=== PATIENT | female | born 1950 | race Caucasian/White ===

== ENCOUNTER → 2017-03-19 | Outpatient (CLI) | payer OTHER, MEDICARE ==
[~2017-03-19] MED LIST: ESTRACE1 MG PO; FLEXERIL PO; LISINOPRIL-HCT1 EAC1 PO
== END ==
LOC: RAD 02:00
DX: Z12.31 Encounter for screening mammogram for malignant neoplasm of breast (principal)

== ENCOUNTER → 2018-04-20 | Outpatient (CLI) | payer OTHER, MEDICARE | LOC: RAD 03:08 | DX: Z12.31 Encounter for screening mammogram for malignant neoplasm of breast (principal) ==

== ENCOUNTER → 2018-09-28 | Outpatient (CLI) | payer OTHER | LOC: CAT 08:58 | DX: Z13.6 Encounter for screening for cardiovascular disorders (principal); E78.00 Pure hypercholesterolemia, unspecified ==

== ENCOUNTER 2019-01-01 09:28 | Emergency (ER) | payer OTHER, MEDICARE ==
[~2019-01-01] VITALS: Ht 157.5 cm; Wt 69.0 kg
[2019-01-01 11:11] VITALS: BP 113/79
[2019-01-01] MEDS ORDERED: LIDOCAINE PAIN1 EACH TOP (11:11)
[2019-01-01] MEDS ORDERED: HYDROCODONE-AP1 EAC6 PO (11:11)
[2019-01-01] MEDS ORDERED: NAPROSYN500 MG PO (11:12)
== END 2019-01-01 11:30 | disposition home or self-care (01) ==
LOC: ER 09:28
DX: S70.12XA Contusion of left thigh, initial encounter (principal); S20.212A Contusion of left front wall of thorax, initial encounter; S09.8XXA Other specified injuries of head, initial encounter; I10 Essential (primary) hypertension; W10.8XXA Fall (on) (from) other stairs and steps, initial encounter; Y93.89 Activity, other specified; Y92.89 Other specified places as the place of occurrence of the external cause; Y99.8 Other external cause status

== ENCOUNTER → 2019-04-28 | Outpatient (CLI) | payer OTHER, MEDICARE ==
[~2019-04-28] MED LIST changes: +HYDROCODONE-AP1 EAC6 PO; +LIDOCAINE PAIN1 EACH TOP; +NAPROSYN500 MG PO
== END ==
LOC: RAD 01:37
DX: Z12.31 Encounter for screening mammogram for malignant neoplasm of breast (principal)

== ENCOUNTER → 2020-07-15 | Outpatient (CLI) | payer OTHER, MEDICARE | LOC: BC 09:23 | PROVIDERS: ATTEND Family Medicine | DX: Z12.31 Encounter for screening mammogram for malignant neoplasm of breast (principal) ==

== ENCOUNTER → 2020-07-26 | Outpatient (CLI) | payer OTHER, MEDICARE ==
[~2020-07-26] MED LIST changes: +FIBER500 MG PO; +GAS RELIEF80 MG PO; +GLUCOSAMINE H1500 MG PO; +ZINC50 M2 PO
== END ==
LOC: LAB 10:58
PROVIDERS: ATTEND Orthopaedic Surgery Sports Medicine
DX: Z01.812 Encounter for preprocedural laboratory examination (principal); Z20.828 Contact with and (suspected) exposure to other viral communicable diseases

== ENCOUNTER 2020-07-31 08:22 | Inpatient (IN) | payer OTHER, MEDICARE ==
[2020-07-23 13:00] LABS: HEMATOCRIT 42.6 % (37.0-47.0); HEMOGLOBIN 14.4 gm/dL (12.0-15.0); MCH 29.7 pg (26.0-34.0); MCHC 33.9 g/dL (28.0-37.0); MCV 87.9 fL (80.0-100.0); RBC 4.85 mil/uL (4.20-5.00); RDW 14.6 % (10.5-14.5); WBC 6.1 thou/uL (4.0-11.0)
--- NOTE | 2020-07-23 13:04 | EKG ---
[facility] [place] [address] ELECTROCARDIOGRAM REPORT Name: ZAKI LUCIO Room #: PRE IN M.R.#: [id number] Admission: Attend Phys: Kendall Milan Discharge: Date of : 52 Report #: [id number] THIS REPORT FOR: cc: Florian Castro MD, Neal A. MD Santiago, Patrick MD [facility] ~ THIS REPORT FOR: //name// [facility] Test Date: 2020-07-23 Test Time: 12:55:06 Pat Name: ZAKI LUCIO Department: Room: Gender: F Sheet Metal Supervisor: OSCAR NG : 1950 Requested By: Kendall Ndiaye Order Number: [id number] MD: Malik Carson Measurements Intervals Boomer Rate: 74 P: 21 IA: 136 QRS: 17 QRSD: 99 T: 7 QT: 400 QTc: 444 Interpretive Statements Significant Pacemaker spikes or artifacts Unable to interpret Electronically Signed On 07-23-2020 13:04:12 CDT by Malik Carson [email or web address] <ELECTRONICALLY SIGNED> By: Malik Carson MD, FACC 07/23/20 1304 1255 Malik Carson MD, FAC /EPI
[2020-07-23 13:06] LABS: CALCIUM 9.4 mg/dL (8.5-10.1); CREATININE 0.7 mg/dL (0.6-1.0); POTASSIUM 4.1 mmol/L (3.5-5.1)
[2020-07-23 13:09] LABS: PROTIME 10.1 Seconds (9.3-11.4)
[2020-07-23 13:13] LABS: URINE BILIRUBIN NEGATIVE (Negative); URINE BLOOD NEGATIVE (Negative); URINE CLARITY CLEAR; URINE COLOR YELLOW; URINE GLUCOSE-RANDOM* NEGATIVE (Negative); URINE KETONES NEGATIVE (Negative); URINE LEUKOCYTES-REFLEX NEGATIVE (Negative); URINE NITRITE-REFLEX NEGATIVE (Negative); URINE PROTEIN (DIPSTICK) NEGATIVE (Negative); URINE UROBILINOGEN 0.2 E.U./dl (0.2-1.0)
[2020-07-31] VITALS (9 sets, daily range): BP systolic 97–130; BP diastolic 44–80
[~2020-07-31] VITALS: Ht 157.5 cm; Wt 68.9 kg
--- NOTE | ~2020-07-31 | O ---
[facility] [place] [address] OPERATIVE REPORT Name: ZAKI LUCIO Room #: 150-3 ADM IN M.R.#: [id number] Admission: 07/31/20 Attend Phys: Kendall Milan Discharge: Date of : 52 Report #: [id number] THIS REPORT FOR: cc: Florian Castro MD, Neal A. MD VanDenBerghe, Gregory R. MD ~ CC: Kendall Castro DATE OF SERVICE: 07/31/2020 PREOPERATIVE DIAGNOSES: Left shoulder pain, osteoarthritis, biceps tendinopathy. POSTOPERATIVE DIAGNOSES: Left shoulder pain, osteoarthritis, biceps tendinopathy, intra-articular loose body, osteoporosis of the proximal humerus. PROCEDURE PERFORMED: Left total shoulder arthroplasty with open biceps tenodesis and loose body removal. SURGEON: Kendall Ndiaye MD [employer] COORDINATOR: Mabel Mackey PA-C. ANESTHESIA: General with preoperative ultrasound-guided interscalene block. FLUIDS: 700 mL crystalloid. ESTIMATED BLOOD LOSS: Approximately 50 mL. IMPLANTS UTILIZED: [employer] Unite size 10 standard porous-coated stem with 135 degree size 10 proximal body, 44 x 18 eccentric humeral head and a size 40 anchor peg glenoid. DESCRIPTION OF PROCEDURE: After proper identification of the patient and operative site in preoperative holding area, the operative site was signed by myself. Prophylactic antibiotics given. The patient elected to receive an ultrasound-guided block after reviewing the risks, benefits, alternatives and potential complications with anesthesia. After a satisfactory block, the patient was brought back to the operative suite. After induction of satisfactory general anesthesia, the patient was carefully positioned in the beach chair with head of bed elevated approximately 40 degrees. Left shoulder was sterilely prepped and draped in the usual manner. Head and neck were carefully positioned in a neutral position. Anterior deltopectoral approach was planned. Final skin draping was with Ioban. A Entomo limb positioning system was utilized throughout the entire procedure. Skin was incised sharply. [address] [address] OPERATIVE REPORT Name: ZAKI LUCIO Room #: [facility] ADM IN M.R.#: [id number] Admission: 07/31/20 Attend Phys: Kendall Milan Discharge: Date of : 52 Report #: [id number] Full thickness skin flaps were developed. Deltopectoral interval was identified. Cephalic vein was retracted laterally. Subdeltoid space was carefully opened. Long head of biceps tendon was identified and tenodesed to the undersurface of the pectoralis major. This was followed proximally. Partial thickness tearing of the biceps was noted and a large spur within the bicipital groove was also noted. This was carefully removed with a rongeur. Anterior circumflex vessels were identified, ligated and cauterized and then a lesser tuberosity osteotomy was performed. A good sized lesser tuberosity fragment was able to be obtained due to the osteoporotic nature of her bone. There was some fragmentation of this inferiorly. Capsule was then carefully released off the inferior glenoid. Traction stitch was applied. Complete loss of chondral surface was noted on both sides of the joint with extensive degenerative changes. Peripheral osteophytes were carefully removed with a rongeur from the humeral head. The supraspinatus and infraspinatus were otherwise intact. There was also a large adhesed multilobulated loose body released and excised off the upper border of the subscapularis. A proximal humeral osteotomy was planned using 135 degree guide at approximately 20-25 degrees of retroversion. Humeral head was osteotomized and osteoporosis was noted with very soft cancellous bone. This was reamed by hand up to a size 10 stem and a size 10 trial broach was carefully implanted into position. Protection plate was applied. Next, attention was divided to the glenoid preparation in exposure. Anterior capsule was carefully released off the subscapularis. The axillary nerve was identified and protected throughout the entire procedure. Labrum was excised circumferentially. A large posterior glenoid osteophyte was carefully removed. After there was excellent exposure and visualization of the glenoid, a guide pin was inserted into the central aspect of the glenoid using the guide. The position was verified by palpation. Next, a step drill was utilized after the glenoid face had been reamed. Any excess soft tissue was carefully removed. Some high side reaming was performed to improve the version back to a more neutral position. After this had been performed and a step drill was utilized, the multipin guide was carefully impacted into position. The rotation pegs were utilized. This was drilled and all of these were contained. This was removed. Glenoid was thoroughly irrigated with antibiotic irrigant. FloSeal was utilized and a trial had been placed. The size 40 glenoid provided the best overall fit within the glenoid vault. Then, the FloSeal was utilized. The 40 mm anchor peg glenoid was bone grafted on the back table and the cement was mixed and then placed in a Tuohy syringe. FloSeal was irrigated free and then the Tuohy syringe was used to pressurize the peripheral pegs of the glenoid. Next, the glenoid was carefully bone grafted and glenoid was carefully impacted into position, it was fully seated, stable and then held firmly in place until the cement had cured. It was well seated and well positioned, then protected with plastic dura while trial implants were utilized. Final implant was selected were 44 x 18 mm eccentric humeral head and a size 10 proximal body and stem. [facility] [address] [place] [address] OPERATIVE REPORT Name: ZAKI LUCIO Room #: 150-3 ADM IN M.R.#: [id number] Admission: 07/31/20 Attend Phys: Kendall Milan Discharge: Date of : 52 Report #: [id number] Stem was prepared on the back table. Four drill holes were placed in the anterior cortex of the humerus where #2 FiberWire was passed. The stem was assembled on the back table. It was carefully impacted into position. Some bone graft from the humeral head placed around the stem in the lesser tuberosity region and then the eccentric humeral head was carefully impacted into position. It nicely recreated the proximal humeral anatomy. Four #2 FiberWires were utilized in a modified Jordan-Mathew technique to repair the subscapularis. It was well reduced to the tuberosity stable to 40 degrees of external rotation without any significant tension on the repair construct. Lateral portion of the rotator interval was closed with #2 FiberWire. Shoulder was stable throughout an arc of motion and the joint was again thoroughly irrigated with antibiotic irrigant. One gram vancomycin powder was utilized, half at deep, half at more superficial and 0 Vicryl was used to close the fascial layer, 2-0 Vicryl for the subcutaneous tissues, final skin closure was with running 4-0 Monocryl. Dermabond was applied. Sterile dressing was applied. The patient will be immobilized in a sling and abduction pillow for 4 weeks. A qualified rn first assist utilized throughout the entire procedure to aid in patient limb positioning, visualization and retraction of the soft tissues, instrument passage, closure and sling and dressing application. Due to the osteoporotic nature of the bone, I would recommend the patient obtain some baseline bone density measurements to aid and potential treatment for her bone health. By: 1222 1313 Kendall Ndiaye MD /nt
--- NOTE | 2020-07-31 17:48 | NUR ---
PT CARE ASSUMED FROM THE OR AT 1405. A&Ox4. AT BEDSIDE. VITALS STABLE. ON ROOM AIR. UP TO THE BATHROOM WITH ONLY 20CC OUTPUT. CONTINUE TO WATCH OUTPUT. IV PATENT WITH NO REDNESS OR EDEMA, FLUIDS INFUSING. IMMOBILZER IN PLACE ON LEFT SHOULDER. POLAR PACK, SCD'S IN PLACE. PT UP TO THE BEDSIDE COMMODE WITH NO ISSUES. NO COMPLAINTS OF NAUSEA OF VOMITTING. TOLERATED FLUIDS AND DINNER WELL. DRESSING DRY AND INTACT. NEURO INTACT ON ALL DIGITS. FALL PROTOCOL IN PLACE. CALL LIGHT IN PLACE. WILL CONTINUE TO MONITOR.
--- NOTE | 2020-08-01 03:36 | NUR ---
PT IS DOING WELL. PAIN MANAGED BY ORAL MEDS. WALKING TO THE BATHROOM WITH SBA. VOIDING OKAY. ROOM AIR WITH NO SOA.L SHOULDER IMMOBILZER IN PLACE WELL THE POLAR JAME.DENIES ANY GI DISCOMFORT.WILL CONTINUE WITH POC TILL EOS.
[2020-08-01 04:12] VITALS: BP 91/59
[2020-08-01 05:45] LABS: HEMATOCRIT 32.1 % (37.0-47.0); HEMOGLOBIN 10.8 gm/dL (12.0-15.0)
[2020-08-01 06:04] LABS: POTASSIUM 4.2 mmol/L (3.5-5.1)
[2020-08-01 07:21] VITALS: BP 82/51
[2020-08-01 08:35] VITALS: BP 99/64
--- NOTE | 2020-08-01 09:33 | NUR ---
ASSESSMENT: CM REVIEWED CHART AND SPOKE WITH PATIENT. PT IS S/P AMRITA FALCON. PT REPORTS LIVING IN A RANCH STYLE HOME WITH HER . PT REPORTS ONE STEP TO ENTER THE HOME AND NO STEPS SHE HAS TO USE ONCE INSIDE. PT REPORTS THAT SHE IS INDEPENDENT WITH ADLS AND AMBULATION. PT REPORTS HAVING A GRAB BAR IN THE SHOWER AND A SHOWER CHAIR. PT STATES THAT [facility] HAS REACHED OUT TO HER AND SHE WANTS TO USE THEM AT DISCHARGE. CM FA[facility] AND NOTIFIED LIASON. PT IS TO WORK WITH THERAPIES TODAY. CM WILL CONTINUE TO FOLLOW TO ASSIST NEEDED.
[2020-08-01 09:35] VITALS: BP 99/64
--- NOTE | 2020-08-01 09:47 | NUR ---
ORDERS RECEIVED FOR EVAL AND TREAT. SPOKE WITH Pt WHO STATES SHE JUST GOT DONE WITH O.T. AND IS HAVING NO DIFFICULTY WITH HER MOBILITY. OBSERVED HER STAND FROM CHAIR WITHOUT DIFFICULTY. Pt DECLINING FORMAL P.T. EVAL BUT APPEARS SAFE FOR HOME
[2020-08-01 12:56] VITALS: BP 99/64
--- NOTE | 2020-08-01 14:02 | NUR ---
PT CARE ASSUMED AT 0700.A&Ox4. PT UP WITH STANDBY. SCD'S/POLARPACK/IMMOBILIZER IN PLACE. IV REMOVED. PAIN CONTROLLED WELL WITH PAIN MEDICATION ON BOARD. VITALS STABLE. AT BEDSIDE. CALL LIGHT IN REACH. NO FURTHER QUESTIONS FROM PATIENT. GOING HOME WITH HOME HEALTH
== END 2020-08-01 13:33 | disposition home health service (06) | DRG 483 ==
LOC: TBA 08:22 → 4S 08:22 → PRE 09:22 → 4S 13:21 → PRE 15:01 → 4S 08-01 13:33
PROVIDERS: Physician Assistant Surgical; ADMIT Orthopaedic Surgery Sports Medicine; ATTEND Orthopaedic Surgery Sports Medicine
PROC: 0RCK0ZZ Extirpation of Matter from Left Shoulder Joint, Open Approach (ICD-10-PCS; principal; 2020-07-31)
PROC: 0LS40ZZ Reposition Left Upper Arm Tendon, Open Approach (ICD-10-PCS; principal; 2020-07-31)
PROC: 0RRK0JZ Replacement of Left Shoulder Joint with Synthetic Substitute, Open Approach (ICD-10-PCS; principal; 2020-07-31)
DX: M19.012 Primary osteoarthritis, left shoulder (principal); M75.22 Bicipital tendinitis, left shoulder; M81.8 Other osteoporosis without current pathological fracture; M24.012 Loose body in left shoulder; Z79.899 Other long term (current) drug therapy
CPT/HCPCS: 10102; 50010; 50101; 50172; 50386; 50417; 50697; 50733; 50935; 51320; 51751; 52001; 52138; 53000; 53078; 54118; 56524; 56525; 56526; 56530; 57095; 57103; 57423; 57424; 57928; 57944; 57990; 58362; 62110; 62900; 64039; 70005

== ENCOUNTER → 2020-12-06 | Outpatient (CLI) | payer OTHER | LOC: CAT 08:44 | PROVIDERS: ATTEND Family Medicine | DX: Z13.6 Encounter for screening for cardiovascular disorders (principal); I25.10 Atherosclerotic heart disease of native coronary artery without angina pectoris; E78.00 Pure hypercholesterolemia, unspecified ==

== ENCOUNTER → 2021-07-29 | Outpatient (CLI) | payer OTHER, MEDICARE | LOC: BC 09:36 | PROVIDERS: ATTEND Family Medicine | DX: Z12.31 Encounter for screening mammogram for malignant neoplasm of breast (principal); N64.89 Other specified disorders of breast ==